=== PATIENT | female | born 2000 | race Caucasian/White ===

== ENCOUNTER → 2023-04-16 16:14 | Outpatient (REF) | payer BC, SELFPAY ==
[2023-04-20 00:58] LABS: Aptima Media Type Urine; Chlamydia trachomatis by TMA Negative (Negative); Neisseria gonorrhoeae by TMA Negative (Negative); Specimen Source Urine
== END ==
LOC: CLAB 16:14
PROVIDERS: ATTENDING PHYSICIAN Nurse Practitioner Family
DX: Z11.3 Encounter for screening for infections with a predominantly sexual mode of transmission (principal)
CPT/HCPCS: 87491; 87591